=== PATIENT | female | born 1935 | race Caucasian/White ===

== ENCOUNTER 2016-11-14 12:00 | Emergency (ER) ==
[2016-11-14 12:08] VITALS: BP 168/86; TEMP 98.9; BMI 24.3
--- NOTE | 2016-11-14 12:18 | ED.PDOC ---
General ED Provider: Dr. VALERIANO LEMUS JR Chief Complaint: Hypertension Stated Complaint: B/P UP LAST WEEK. CHECKED TODAY AND B/P 175/103, 168/[address] Blount"?[End]98.9 124 16 96% 168/86(175/103)takes multivitamin no other vitamins or supplements or herbs Time Seen by Physician: 12:15 Mode of Arrival: Walk-In Information Source: Patient Exam Limitations: No limitations Primary Care Provider: ROYA SKAGGS Nursing and Triage Documentation Reviewed and Agree: No Review of Systems - Review Of Systems Constitutional: Reports: No symptoms Eyes: Reports: No symptoms Ears, Nose, Mouth, Throat: Reports: No symptoms Respiratory: Reports: No symptoms Cardiac: Reports: No symptoms GI: Reports: No symptoms : Reports: No symptoms Musculoskeletal: Reports: No symptoms Skin: Reports: No symptoms Neurological: Reports: No symptoms, Cognitive dysfunction (forgetful per /upcoming cataract surgery) Endocrine: Reports: No symptoms Hematologic/Lymphatic: Reports: No symptoms All Other Systems: Other Past Medical History - Past Medical History Previously Healthy: Yes Endocrine: Reports: None Cardiovascular: Reports: None Respiratory: Reports: None Hematological: Reports: None Gastrointestinal: Reports: None Genitourinary: Reports: None Neuro/Psych: Reports: None Musculoskeletal: Reports: None Cancer: Reports: None Last Menstrual Period: NA - Surgical History General Surgical History: Reports: None - Family History Family History: Reports: Unknown - Social History Smoking Status: Never smoker Hx Substance Use: No Alcohol Screening: None Physical Exam - Physical Exam Appearance: Well-appearing Eyes: KAMINI, EOMI, Conjunctiva clear ENT: Ears normal (tm s couldy congested asymptomatic), Nose normal, Oropharynx normal Respiratory: Airway patent, Breath sounds clear, Breath sounds equal, Respirations nonlabored Cardiovascular: RRR, Pulses normal, No rub, No murmur GI/: Soft, Nontender, No masses, Bowel sounds normal, No Organomegaly Musculoskeletal: Normal strength, ROM intact, No edema, No calf tenderness Skin: Warm, Dry, Normal color Neurological: Sensation intact, Motor intact, Reflexes intact, Cranial nerves intact, Alert, Oriented Psychiatric: Affect appropriate, Mood appropriate Interpretation - Radiology Interpretation Radiology Interpretation By: Radiologist Radiology Results: Negative Exam Interpreted: CXR - EKG Interpretation Time of EKG #1: 12:30 Rate: Tachy Rhythm: Sinus ST Segment: Normal (non acute inferior q waves) Critical Care Note - Critical Care Note Total Time (mins): 0 Course - Course Hematology/Chemistry: 11/14/16 12:40 11/14/16 12:40 Orders, Labs, Meds: Lab Review 11/14/16 11/14/16 12:25 12:40 WBC 9.70 RBC 4.79 Hgb 13.7 Hct 40.9 MCV 85.4 MCH 28.6 MCHC 33.5 RDW Coeff of [place] 13.1 Plt Count 301 Immature Gran % (Auto) 0.3 Neut % (Auto) 77.3 Lymph % (Auto) 15.3 [place] % (Auto) 6.2 Eos % (Auto) 0.6 Baso % (Auto) 0.3 Immature Gran # (Auto) 0.0 Neut # 7.5 H Lymph # 1.5 [place] # 0.6 Eos # 0.1 Baso # 0.0 Sodium 142 Potassium 3.6 Chloride 108 H Carbon Dioxide 24 Anion Gap 13.6 BUN 9 Creatinine 0.82 Estimated GFR (MDRD) 67.00 BUN/Creatinine Ratio 10.97 Glucose 104 Calcium 9.4 Total Bilirubin 0.39 AST 14 L ALT 11 L Alkaline Phosphatase 97 Total Creatine Kinase 60 Troponin I 0.0240 B-Natriuretic Peptide 14 Total Protein 7.9 Albumin 4.2 Globulin 3.7 Albumin/Globulin Ratio 1.14 Procalcitonin < 0.05 Urine Color Yellow Urine Clarity Clear Urine pH 6.0 Ur Specific [place] 1.015 Urine Protein Negative Urine Glucose (UA) Negative Urine Ketones Negative Urine Blood Trace-lysed Urine Nitrite Negative Urine Bilirubin Negative Urine Urobilinogen 0.2 Ur Leukocyte Esterase Negative Urine Microscopic RBC 0-2 Ur Squamous Epith Cells 0-2 Orders Category Date Time Status EKG-(ED ONLY) Stat CARDIO 11/14/16 12:15 Completed ED CHIEF AIRLINE RADIO OPERATOR APPLIED .ONCE EMERGENCY 11/14/16 12:16 Active B-TYPE NATRIURETIC PEPTIDE Stat LAB 11/14/16 12:40 Received BLOOD CULTURE Stat LAB 11/14/16 12:40 Received CBC W/ AUTO DIFF Stat LAB 11/14/16 12:40 Completed COMPREHENSIVE METABOLIC PANEL Stat LAB 11/14/16 12:40 Received CREATINE KINASE Stat LAB 11/14/16 12:40 Received PROCALCITONIN Stat LAB 11/14/16 12:40 Completed TROPONIN I Stat LAB 11/14/16 12:40 Received UA [URINALYSIS C & S IF INDICATED] Stat LAB 11/14/16 12:25 Completed CHEST, 2 VIEWS PA & LAT Stat RADS 11/14/16 12:17 Completed Vital Signs: Temp Pulse Resp BP Pulse Ox 11/14/16 12:04 98.9 F 124 H 16 168/86 H 96 BRET Risk Score BRET Risk Score: Risk Score Odds of by 30D 0 0.1 (0.1-0.2) 1 0.3 (0.2-0.3) 2 0.4 (0.3-0.5) 3 0.7 (0.6-0.9) 4 1.2 (1.0-1.5) 5 2.2 (1.9-2.6) 6 3.0 (2.5-3.6) 7 4.8 (3.8-6.1) Departure - Departure Time of Disposition: 13:29 Disposition: HOME SELF-CARE Discharge Problem: Borderline hypertension Instructions: Hypertension (ED) Condition: Good Pt referred to PMD for follow-up: Yes Additional Instructions: follow up with PMD discuss rapid heart rate and increased blood pressure avoid strenuous activity but continue daily exercise call with ingredients of multivitamin drink plenty of fluids return if chest pressure lightheadedness or fever check and write down blood pressure once a day take readings to PMD appointment return if fever sweats lightheaded weak or if systolic blood pressure over 180 or diastolic blood pressure over 105 Allergies/Adverse Reactions: Allergies No Known Allergies Allergy (Unverified 02/12/13 08:15) Home Medications: Ambulatory Orders Multivitamin [Multi-Vitamin Daily] 1 tab PO DAILY 11/14/16
[2016-11-14 12:32] LABS: BILIRUBIN,URINE Negative (NEGATIVE); KETONES,URINE Negative (NEGATIVE); LEUKOCYTE ESTERASE ,URINE Negative (NEGATIVE); NITRITE,URINE Negative (NEGATIVE); PROTEIN,URINE Negative (NEGATIVE); URINE, BLOOD Trace-lysed (NEGATIVE)
[2016-11-14 12:35] LABS: ADD URINE MICROSCOPIC YES
[2016-11-14 12:50] LABS: BASOPHILS % (AUTO) 0.3 % (0.0-3.0); EOSINOPHILS # (AUTO) 0.1 K/ul (0.0-0.7); EOSINOPHILS % (AUTO) 0.6 % (0.0-7.0); HEMATOCRIT 40.9 % (37.0-47.0); HEMOGLOBIN 13.7 g/dl (12.0-16.0); IMMATURE GRANULOCYTE % (AUTO) 0.3 % (0.0-5.0); LYMPHOCYTES # (AUTO) 1.5 K/uL (0.60-3.4); LYMPHOCYTES % (AUTO) 15.3 (10.0-50.0); MEAN CORPUSCULAR HEMOGLOBIN 28.6 pg (27.0-31.0); MEAN CORPUSCULAR HGB CONC 33.5 (31.8-35.4); MEAN CORPUSCULAR VOLUME 85.4 fl (81.0-99.0); MONOCYTES # (AUTO) 0.6 K/uL (0.4-2.0); MONOCYTES % (AUTO) 6.2 (0-10); NEUTROPHILS # (AUTO) 7.5 K/ul (2.0-6.9); NEUTROPHILS % (AUTO) 77.3; PLATELET COUNT 301 10^3/uL (140-440); RED BLOOD COUNT 4.79 10^6/ul (4.20-5.40)
--- NOTE | 2016-11-14 12:58 | DI ---
EXAM: Chest two views CLINICAL INDICATION: Tachycardia with hypertension. COMPARISON: None available. FINDINGS: PA and lateral views of the thorax are provided. The pulmonary parenchyma is clear and there is no pleural abnormality. The cardiomediastinal silhou ette and visualized bony structures are unremarkable. IMPRESSION: Negative chest x-ray.
[2016-11-14 13:19] LABS: ALBUMIN 4.2 g/dL (3.4-5.0); ALBUMIN/GLOBULIN RATIO 1.14; ANION GAP 13.6; BILIRUBIN,TOTAL 0.39 mg/dL (0.00-1.20); BUN/CREATININE RATIO 10.97; CALCIUM 9.4 mg/dL (8.2-10.2); CREATININE 0.82 mg/dL (0.60-1.30); POTASSIUM 3.6 mmol/L (3.5-5.10); TOTAL PROTEIN 7.9 g/dL (5.8-8.1); TROPONIN I 0.024 ng/ml (0.0000-0.4000)
== END 2016-11-14 14:07 | disposition home or self-care (01) ==
LOC: ED 12:00
DX: R03.0 Elevated blood-pressure reading, without diagnosis of hypertension (principal); R00.0 Tachycardia, unspecified
CPT/HCPCS: 36415; 80053; 81001; 82550; 83880; 84145; 84484; 85025; 87040; 93005; 93010; 99283

== ENCOUNTER 2016-11-15 09:31 | Emergency (ER) ==
[2016-11-15 09:41] VITALS: BP 159/78; TEMP 98.8; BMI 25.4
[2016-11-15 09:53] LABS: BASOPHILS % (AUTO) 0.4 % (0.0-3.0); EOSINOPHILS # (AUTO) 0.1 K/ul (0.0-0.7); EOSINOPHILS % (AUTO) 0.6 % (0.0-7.0); HEMATOCRIT 43.2 % (37.0-47.0); HEMOGLOBIN 14.2 g/dl (12.0-16.0); IMMATURE GRANULOCYTE % (AUTO) 0.1 % (0.0-5.0); LYMPHOCYTES # (AUTO) 1.3 K/uL (0.60-3.4); LYMPHOCYTES % (AUTO) 16.1 (10.0-50.0); MEAN CORPUSCULAR HEMOGLOBIN 28.5 pg (27.0-31.0); MEAN CORPUSCULAR HGB CONC 32.9 (31.8-35.4); MEAN CORPUSCULAR VOLUME 86.6 fl (81.0-99.0); MONOCYTES # (AUTO) 0.5 K/uL (0.4-2.0); MONOCYTES % (AUTO) 6.6 (0-10); NEUTROPHILS # (AUTO) 6.2 K/ul (2.0-6.9); NEUTROPHILS % (AUTO) 76.2; PLATELET COUNT 311 10^3/uL (140-440); RED BLOOD COUNT 4.99 10^6/ul (4.20-5.40); WHITE BLOOD COUNT 8.09 K/ul (4.6-10.2)
[2016-11-15 10:19] LABS: ALBUMIN 4.1 g/dL (3.4-5.0); ALBUMIN/GLOBULIN RATIO 1.05; ANION GAP 12.8; BILIRUBIN,TOTAL 0.49 mg/dL (0.00-1.20); BUN/CREATININE RATIO 11.9; CALCIUM 9.6 mg/dL (8.2-10.2); CREATININE 0.84 mg/dL (0.60-1.30); POTASSIUM 3.8 mmol/L (3.5-5.10)
[2016-11-15 10:20] LABS: TROPONIN I 0.014 ng/ml (0.0000-0.4000)
--- NOTE | 2016-11-15 10:29 | CT ---
EXAM: CT BRAIN HISTORY: Head pain, high blood pressure TECHNIQUE: CT brain without intravenous contrast. 5-mm axial sections with Reformations. COMPARISON: None FINDINGS: There is mild generalized atrophy. Probable early chronic microvascular ischemic change. Brain othe rwise is unremarkable without distinct evidence of hemorrhage or large vessel distribution recent is chemic infarction. There is no suggestion of acute hydrocephalus or subdural fluid collection. No mass or mass effect. Cranium is within normal limits. Mastoid air cells are aerated. The visualized paranasal sinuses are clear. IMPRESSION: No acute intracranial process.
--- NOTE | 2016-11-15 10:30 | ED.PDOC ---
General ED Provider: Dr. NURIS COSBY Chief Complaint: Hypertension Stated Complaint: hypertension Time Seen by Physician: 09:39 (has headache seen with staff no chest pain no weakness ) Mode of Arrival: Ambulance Information Source: Patient, EMT Exam Limitations: No limitations Primary Care Provider: ROYA SKAGGS Nursing and Triage Documentation Reviewed and Agree: Yes Cardiovascular Complaint Exam - Hypertension Complaint/Exam Onset/Duration: this morning Symptoms Are: Still present Timing: Intermittent Reported B/P Prior to Arrival: distolic was 100 Aggravating: Reports: None Alleviating: Reports: None Associated Signs and Symptoms: Reports: Headache. Denies: Chest pain, Vision changes, Anxiety, Recent stress, Numbness, Tingling, Weakness, Dizziness, Short of air, Swelling Related History: Reports: Similar episode Related Surgical History: Reports: None Cardiac Risk Factors: Reports: None Recent Change in Medications: No A/V [place]: No Papilledema Present: No JVD Present: No Carotid Bruit Present: No Femoral Pulses Bounding: No Differential Diagnoses: Hypertension Quality Indicator For Non-Traumatic Chest Pain/Syncope: EKG Performed Review of Systems - Review Of Systems Constitutional: Reports: No symptoms Eyes: Reports: No symptoms Ears, Nose, Mouth, Throat: Reports: No symptoms Respiratory: Reports: No symptoms Cardiac: Reports: No symptoms GI: Reports: No symptoms : Reports: No symptoms Musculoskeletal: Reports: No symptoms Skin: Reports: No symptoms Neurological: Reports: Headache Endocrine: Reports: No symptoms Hematologic/Lymphatic: Reports: No symptoms All Other Systems: Reviewed and Negative Past Medical History - Past Medical History Previously Healthy: Yes Endocrine: Reports: None Cardiovascular: Reports: None Respiratory: Reports: None Hematological: Reports: None Gastrointestinal: Reports: None Genitourinary: Reports: None Neuro/Psych: Reports: None Musculoskeletal: Reports: None Cancer: Reports: None Last Menstrual Period: NA - Surgical History General Surgical History: Reports: None - Family History Family History: Reports: Unknown - Social History Smoking Status: Never smoker Hx Substance Use: No Alcohol Screening: None Physical Exam - Physical Exam Appearance: Well-appearing, No pain distress, Well-nourished Eyes: KAMINI, EOMI, Conjunctiva clear ENT: Ears normal, Nose normal, Oropharynx normal Respiratory: Airway patent, Breath sounds clear, Breath sounds equal, Respirations nonlabored Cardiovascular: RRR, Pulses normal, No rub, No murmur GI/: Soft, Nontender, No masses, Bowel sounds normal, No Organomegaly Musculoskeletal: Normal strength, ROM intact, No edema, No calf tenderness Skin: Warm, Dry, Normal color Neurological: Sensation intact, Motor intact, Reflexes intact, Cranial nerves intact, Alert, Oriented Psychiatric: Affect appropriate, Mood appropriate Interpretation - Senior Asic Engineer Rate: Normal Rhythm: Sinus Ectopy: None - EKG Interpretation Rate: Normal Rhythm: Sinus Ectopy: None [place]: NL ST Segment: Normal Critical Care Note - Critical Care Note Total Time (mins): 0 Course - Course Hematology/Chemistry: 11/15/16 09:50 11/15/16 09:50 Orders, Labs, Meds: Lab Review 11/15/16 09:50 WBC 8.09 RBC 4.99 Hgb 14.2 Hct 43.2 MCV 86.6 MCH 28.5 MCHC 32.9 RDW Coeff of [place]aw[place] 13.2 Plt Count 311 Immature Gran % (Auto) 0.1 Neut % (Auto) 76.2 Lymph % (Auto) 16.1 [place] % (Auto) 6.6 Eos % (Auto) 0.6 Baso % (Auto) 0.4 Immature Gran # (Auto) 0.0 Neut # 6.2 Lymph # 1.3 [place] # 0.5 Eos # 0.1 Baso # 0.0 Sodium 141 Potassium 3.8 Chloride 107 Carbon Dioxide 25 Anion Gap 12.8 BUN 10 Creatinine 0.84 Estimated GFR (MDRD) 66.00 BUN/Creatinine Ratio 11.90 Glucose 123 H Calcium 9.6 Total Bilirubin 0.49 AST 18 ALT 12 Alkaline Phosphatase 92 Total Creatine Kinase 71 Troponin I 0.0140 Total Protein 8.0 Albumin 4.1 Globulin 3.9 Albumin/Globulin Ratio 1.05 Orders Category Date Time Status EKG-(ED ONLY) Stat CARDIO 11/15/16 09:39 Completed CBC W/ AUTO DIFF Stat LAB 11/15/16 09:50 Completed COMPREHENSIVE METABOLIC PANEL Stat LAB 11/15/16 09:50 Completed CREATINE KINASE Stat LAB 11/15/16 09:50 Completed TROPONIN I Stat LAB 11/15/16 09:[address] HEAD W/O CONTRAST Stat RADS 11/15/16 09:44 Taken Vital Signs: Temp Pulse Resp BP Pulse Ox 11/15/16 09:38 98.8 F 108 H 20 159/78 H 96 BRET Risk Score BRET Risk Score: Risk Score Odds of by 30D 0 0.1 (0.1-0.2) 1 0.3 (0.2-0.3) 2 0.4 (0.3-0.5) 3 0.7 (0.6-0.9) 4 1.2 (1.0-1.5) 5 2.2 (1.9-2.6) 6 3.0 (2.5-3.6) 7 4.8 (3.8-6.1) Departure - Departure Time of Disposition: 11:15 Disposition: HOME SELF-CARE Discharge Problem: Borderline hypertension Instructions: Hypertension (ED) Condition: Good Pt referred to PMD for follow-up: No Additional Instructions: Please call your Family Physician as soon as possible to schedule a follow-up appointment. Allergies/Adverse Reactions: Allergies No Known Allergies Allergy (Unverified 11/15/16 09:37) Home Medications: Ambulatory Orders Multivitamin [Multi-Vitamin Daily] 1 tab PO DAILY 11/14/16
== END 2016-11-15 11:31 | disposition home or self-care (01) ==
LOC: ED 09:31
DX: R03.0 Elevated blood-pressure reading, without diagnosis of hypertension (principal); R51 Headache
CPT/HCPCS: 36415; 80053; 82550; 84484; 85025; 93005; 93010; 99283

== ENCOUNTER 2016-12-31 06:28 | Day surgery (SDC) ==
[2016-12-31] MEDS ORDERED: AK-DILATE 10% OPTH SOL OP PRN (07:15)
[2016-12-31] MEDS ORDERED: CYCLOGYL 2% OPTH OP PRN (07:15)
[2016-12-31] MEDS ORDERED: LIDOCAINE 1% 20 ML MDV ID ONE (07:23)
[2016-12-31] MEDS ORDERED: TETRACAINE 0.5% OPTH SOL OP ONE (07:25)
[2016-12-31] MEDS: TETRACAINE 0.5% UNIT-DOSE OP PRN ×3 (07:25→07:55)
[2016-12-31] MEDS: AK-DILATE 10% OPTH SOL OP PRN ×3 (07:25→07:35)
[2016-12-31] MEDS ORDERED: OCUFEN 0.03% OPTH SOL OP ONE (07:25)
[2016-12-31] MEDS: OCUFEN 0.03% OPTH SOL OP PRN ×3 (07:25→07:55)
[2016-12-31] MEDS ORDERED: AK-DILATE 10% OPTH SOL OP ONE (07:25)
[2016-12-31] MEDS: CYCLOGYL 2% OPTH OP PRN ×3 (07:25→07:35)
[2016-12-31] MEDS ORDERED: CYCLOGYL 2% OPTH OP ONE (07:25)
[2016-12-31] MEDS ORDERED: SUBLIMAZE ONE (07:55)
[2016-12-31] MEDS ORDERED: VERSED ONE (07:55)
[2016-12-31] MEDS ORDERED: BETADINE OPTH PREP OP ONE (08:04)
[2016-12-31] MEDS ORDERED: OCUFLOX 0.3% OPTH SOL OP ONE ×2 (08:23)
[2016-12-31] MEDS ORDERED: TIMOPTIC 0.5% OPTH OP ONE ×2 (08:23)
[2016-12-31] MEDS ORDERED: PRED FORTE 1% OPTH SOL OP ONE (08:23)
[2016-12-31] MEDS ORDERED: EPINEPHRINE 1:1,000 AMP IR ONE (08:23)
[2016-12-31] MEDS ORDERED: DIAMOX ONE (08:35)
[2016-12-31] MEDS ORDERED: DIAMOX PO ONE (08:35)
[2016-12-31 09:10] VITALS: BP 118/73; TEMP 97.7
--- NOTE | 2016-12-31 12:55 | OP ---
PREOPERATIVE DIAGNOSIS: CATARACT RIGHT EYE. POSTOPERATIVE DIAGNOSIS: SAME. OPERATION PHACOEMULSIFICATION ASPIRATION OF CATARACT RIGHT EYE. PLACEMENT OF POSTERIOR CHAMBER LENS. PHACO TIME 1:45, 2 SECONDS AT 20% POWER. LENS MODEL BRIJESH [id number]. DIOPTER +19.0D. TECHNIQUE: CLEAR CORNEA. ANESTHESIA: TOPICAL ANESTHESIA W/ANESTHESIA MONITORING. OPERATIVE REPORT: Topical anesthesia consisting of Tetracaine was applied to the cornea and Xylocaine Methyl Paraben free of MFP was injected intracamerally into the anterior chamber. The patient was then brought into the operating room , prepped and draped in the usual ophthalmic manner. A lid speculum was placed and the operating microscope was used. A paracentesis was made at the 3 o' clock position. A clear corneal incision was made just out to the limbus. The anterior chamber was entered just inside the clear cornea. Viscoelastic was injected into the anterior chamber. A capsulotomy was performed with a bent # 27 gauge needle. Phacoemulsification was then performed in the posterior chamber. After completion of the phacoemulsification, residual cortical material was aspirated with the irrigation-aspiration system. The posterior capsule was polished. Viscoelastic was injected into the anterior and posterior chambers to inflate the capsular bag. Lens were placed via an Unfolder system and stabilized in the bag. Viscoelastic was removed from the anterior chamber. The wound was checked for any leakage. The four sponges were removed from the fornix. Topical antibiotic steroid and nonsteroidal drops were also applied to the cornea. A Bundy shield was applied. The patient left the operating room in good condition without any complications. INTRAOPERATIVE MEDICATIONS: Xylocaine Methyl Paraben Free MPF MTDD
== END 2016-12-31 09:23 | disposition home or self-care (01) ==
LOC: SURG 06:28
PROVIDERS: ATTEND Ophthalmology
DX: H25.041 Posterior subcapsular polar age-related cataract, right eye (principal)